=== PATIENT | female | born 1965 | race Two or more races ===

== ENCOUNTER 2024-10-29 15:44 | Emergency (ER) | payer OTHER ==
[2024-10-29] MEDS ORDERED: Fluorescein Opthalmic Strip ONE (16:48)
[2024-10-29] MEDS ORDERED: Proparacaine 0.5% Opth 15 ML BOT ONE (16:48)
== END 2024-10-29 18:15 | disposition home or self-care (01) ==
LOC: ERS 15:44
DX: H11.32 Conjunctival hemorrhage, left eye (principal)
CPT/HCPCS: 99283

== ENCOUNTER 2025-02-09 12:19 | Outpatient (CLI) | payer OTHER | END 2025-02-09 12:20 | disposition home or self-care (01) | PROVIDERS: ATTEND Family Medicine | DX: R00.2 Palpitations (principal) | CPT/HCPCS: 93225; 93226 ==

== ENCOUNTER 2025-02-25 18:07 | Emergency (ER) | payer OTHER ==
[2025-02-25] MEDS ORDERED: Albuterol 2.5 MG (0.5 mL) NEB ONE (19:12)
[2025-02-25] MEDS ORDERED: Dexamethasone 10 MG/ML VIAL ONE (19:13)
[2025-02-25] MEDS ORDERED: Ipratropium Bromide 2.5 ml Neb ONE (19:13)
== END 2025-02-25 20:14 | disposition home or self-care (01) ==
LOC: ERS 18:07
DX: J45.901 Unspecified asthma with (acute) exacerbation (principal); J06.9 Acute upper respiratory infection, unspecified
CPT/HCPCS: 71045; 93005; J1100; J7611; J7644